=== PATIENT | male | born 1975 | race Caucasian/White ===

== ENCOUNTER 2025-01-14 22:34 | Emergency (ER) | payer SELFPAY ==
[2025-01-14 22:54] VITALS: BP 166/90
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
[2025-01-14 23:23] VITALS: BMI 26.5
[2025-01-14 23:25] LABS: Hematocrit 40.0 % (39.0-52.0); Hemoglobin 13.8 g/dL (13.0-18.0); Mean Corp Hgb Conc. 34.5 g/dL (33.0-37.0); Mean Corpuscular Volume 90.1 fL (80.0-94.0); Nucleated Red Blood Cells % 0 % (-); Platelet Count 251 10^3/uL (130-400); Red Cell Dist. Width 12.9 % (11.5-14.5)
[2025-01-15] LABS: Blood Urea Nitrogen 24 mg/dl (9-20); Calcium 9.6 mg/dl (8.4-10.2); Carbon Dioxide 26 mmol/L (22-30); Chloride 103 mmol/L (98-107); Estimated Creatinine Clearance 86 ml/min; Glucose 94 mg/dl (70-99); Magnesium 1.9 mg/dl (1.6-2.3); Potassium 4.6 mmol/L (3.5-5.1); Sodium 135 mmol/L (135-145); eGFR > 60.00
[2025-01-15 01:09] VITALS: BP 166/97
== END 2025-01-15 01:32 | disposition home or self-care (01) ==
LOC: EMR 22:34
PROVIDERS: Student in an Organized Health Care Education/Training Program; EMERGENCY PHYSICIAN Emergency Medicine
DX: F90.9 Attention-deficit hyperactivity disorder, unspecified type (principal); F32.A Depression, unspecified; F12.90 Cannabis use, unspecified, uncomplicated; Z63.0 Problems in relationship with spouse or partner
CPT/HCPCS: 99283; 80048; 80306; 80307; 82077; 83735; 85025